=== PATIENT | female | born 1985 | race African-American/Black ===

== ENCOUNTER 2016-12-19 11:57 | Emergency (ER) | payer SELFPAY ==
--- OUTSIDE RECORDS SUMMARY | 2016-12-19 11:59 | XMS | Clinical Summary ---
:1985 Author Organization [facility] Address [address] [place] [address] Phone Care Team Providers Name Role Phone , Primary Care Provider Unavailable Allergies Not on File Current Medications Not on file Active Problems Not on file Social History Tobacco Use Types Packs/Day Years Used Date Never Assessed Sex Assigned at Date Recorded Not on file Last Filed Vital Signs Not on file Plan of Treatment Not on file Results Not on filefrom Last 3 Months
[2016-12-19 14:03] LABS: #Basophils 0.1 thou/uL (0.0-0.2); #Eosinphils 0.2 thou/uL (0.0-0.7); #Lymphocytes 3.1 thou/uL (1.20-3.40); #Monocytes 0.7 thou/uL (0.11-0.59); #Neutrophils 4.2 thou/uL (1.40-6.50); %Basophils 0.6 % (0.0-1.0); %Lymphocytes 37.6 % (21.0-51.0); %Monocytes 7.9 % (0.0-10.0); Hematocrit 39.3 % (36.0-47.0); Mean Platelet Volume 6.2 fL (7.4-10.4); Red Blood Cell (RBC) Count 4.33 mill/uL (4.20-5.40); White Blood Cell (WBC) Count 8.2 thou/uL (4.8-10.8)
[2016-12-19 14:27] LABS: ALT (SGPT) 17 U/L (8-55); AST (SGOT) 17 U/L (5-34); Alkaline Phosphatase 130 U/L (40-150); Anion Gap 13 mmol/L (10-20); BUN (Urea Nitrogen) 10 mg/dL (7.0-18.7); Bilirubin, Total Less than 0.2 mg/dL (0.2-1.2); Calc. Creatinine Clearance 0 mL/min (70-130); Calcium 8.6 mg/dL (7.8-10.44); Carbon Dioxide 24 mmol/L (22-29); Chloride 105 mmol/L (98-107); Estimated GFR-MDRD Greater than 90; Globulin 4.3 g/dL (2.4-3.5)
--- NOTE | 2016-12-19 15:07 | CT ---
EXAM: NONCONTRAST HEAD CT: HISTORY: Headache. Nausea and dizziness. Migraines. TECHNIQUE: A noncontrast head CT is performed from the skull base to the skull vertex. FINDINGS: No parenchymal hemorrhage. No extraaxial hematoma. No midline shift. Basilar cisterns are patent. Brain volume, age appropriate. Cortical izaguirre-white matter differentiation is preserved. Ventricles and sulci are patent and symmetric. Calvarium is intact. Old right lamina papyracea fra cture is noted. Adequate aeration of the paranasal sinuses. Right mastoid air cells are adequately aerated. Stable opacification and postsurgical imaging of the left mastoid air cell. IMPRESSION: No acute intracranial process. POS: [facility]
[2016-12-19] MEDS ORDERED: Ibuprofen 800 MG TAB ONE (15:10)
[2016-12-19] MEDS ORDERED: HYDROcodone/Acetaminophen 10/325 mg Tablet ONE (15:10)
[2016-12-19] MEDS ORDERED: Metoclopramide HCl 10 MG TAB PO SCH (15:45)
== END 2016-12-19 15:49 | disposition home or self-care (01) ==
LOC: ERS 11:57
DX: G43.909 Migraine, unspecified, not intractable, without status migrainosus (principal); L40.9 Psoriasis, unspecified
CPT/HCPCS: 36415; 70450; 80053; 84703; 85025

== ENCOUNTER 2017-05-12 08:06 | Emergency (ER) | payer MEDICAID, OTHER ==
[2017-05-12 08:34] LABS: #Eosinphils 0.2 thou/uL (0.0-0.7); #Lymphocytes 2.6 thou/uL (1.20-3.40); #Monocytes 0.6 thou/uL (0.11-0.59); %Basophils 0.2 % (0.0-1.0); %Eosinophils 1.8 % (0.0-10.0); %Monocytes 5.5 % (0.0-10.0); %Neutrophils 67.6 % (42.0-75.0); Hemoglobin 11.7 g/dL (12.0-16.0); Mean Corpuscular HGB CONC 32.5 g/dL (32.0-36.0); Mean Corpuscular Hemoglobin 29.1 pg (27.0-31.0); Mean Corpuscular Volume 89.7 fl (81.0-99.0); Platelet Count 405 thou/uL (130-400); RBC Distribution Width 12.7 % (11.5-14.5); Red Blood Cell (RBC) Count 4.02 mill/uL (4.20-5.40); White Blood Cell (WBC) Count 10.3 thou/uL (4.8-10.8)
[2017-05-12 09:37] LABS: Bilirubin Negative (Negative); Blood, Urine Negative (Negative); Clarity CLEAR (Clear); Glucose, Urine (Dipstick) Negative (Negative); Leukocyte Negative (Negative); Nitrite Negative (Negative); Protein, Urine (Dipstick) Negative (Neg-Trace); Specific Gravity, Urine 1.024 (1.002-1.036)
--- NOTE | 2017-05-12 10:28 | ULT ---
PELVIC ULTRASOUND: HISTORY: Positive home test with abdominal and pelvic pain. TECHNIQUE: Multiplanar, izaguirre scale, and color Doppler images were obtained in a transabdominal and transvaginal pelvic ultrasound. Spectral analysis of the Doppler waveforms of the ovaries was performed. FINDINGS: Endometrial stripe is thickened measuring 1.9 cm. There is a questionable small hypoechoic structure in area of thickened endometrium which could represent a very early gestational sac. This has a thea n sac diameter of 0.65 cm which estimated gestational age of 5 weeks 3 days. No pole or yolk s ac is seen at this time within the potential gestational sac. There is a possible fibroid along the left aspect of the uterus measuring 2.4 cm in size. A small amount of free fluid is seen in the pelv is. Both ovaries are normal in size and appearance and demonstrate normal internal flow. IMPRESSION: 1. Possible early intrauterine gestational sac with estimated of 5 weeks 3 days. 2. Uterine fibroid. POS: [facility]
== END 2017-05-12 10:38 | disposition home or self-care (01) ==
LOC: ERS 08:06
DX: O99.89 Other specified diseases and conditions complicating pregnancy, childbirth and the puerperium (principal); R10.31 Right lower quadrant pain; Z3A.01 Less than 8 weeks gestation of pregnancy
CPT/HCPCS: 36415; 76856; 81003; 84702; 85025; 86900; 86901

== ENCOUNTER 2017-06-12 22:53 | Emergency (ER) | payer MEDICAID, OTHER ==
[2017-06-13] MEDS ORDERED: Acetaminophen 500 MG TAB ONE (00:50)
[2017-06-13] MEDS ORDERED: Metoclopramide HCl 10 MG TAB PO SCH (01:00)
== END 2017-06-13 02:10 | disposition home or self-care (01) ==
LOC: ERS 22:53
DX: O99.89 Other specified diseases and conditions complicating pregnancy, childbirth and the puerperium (principal); R10.32 Left lower quadrant pain; R51 Headache; Z3A.09 9 weeks gestation of pregnancy

== ENCOUNTER 2017-07-05 11:14 | Emergency (ER) | payer OTHER ==
[2017-07-05] MEDS ORDERED: Ondansetron HCl/PF 4 MG/2 ML Vial ONE (11:43)
[2017-07-05 12:50] LABS: Bilirubin Negative (Negative); Blood, Urine Trace (Negative); Clarity CLEAR (Clear); Glucose, Urine (Dipstick) Negative (Negative); Leukocyte Negative (Negative); Nitrite Negative (Negative); Protein, Urine (Dipstick) Negative (Neg-Trace); Specific Gravity, Urine 1.023 (1.002-1.036); Urobilinogen 0.2 mg/dL (0.2-1.0); pH, Urine 6.5 (5.0-9.0)
[2017-07-05 12:51] LABS: Bacteria/HPF Rare-Few HPF (None Seen); Hyaline Casts/LPF 0-3 HYALINE CAST LPF (0-3 Hyaline); Squamous Epithelial 0-3 HPF (0-3); WBC/HPF 0-3 HPF (0-3)
[2017-07-05] MEDS ORDERED: Meclizine HCl 25 MG TAB ONE (13:04)
[2017-07-05] MEDS ORDERED: Acetaminophen 500 MG TAB ONE (13:09)
[2017-07-05 14:06] LABS: #Eosinphils 0.2 thou/uL (0.0-0.7); #Lymphocytes 2.9 thou/uL (1.20-3.40); #Monocytes 0.7 thou/uL (0.11-0.59); #Neutrophils 7.3 thou/uL (1.40-6.50); %Basophils 0.3 % (0.0-1.0); %Eosinophils 1.6 % (0.0-10.0); %Lymphocytes 26.1 % (21.0-51.0); %Monocytes 6.6 % (0.0-10.0); %Neutrophils 65.4 % (42.0-75.0); Hemoglobin 12.4 g/dL (12.0-16.0); Mean Corpuscular HGB CONC 33.3 g/dL (32.0-36.0); Mean Corpuscular Hemoglobin 29.3 pg (27.0-31.0); Mean Platelet Volume 5.6 fL (7.4-10.4); Platelet Count 419 thou/uL (130-400); RBC Distribution Width 12.7 % (11.5-14.5); Red Blood Cell (RBC) Count 4.23 mill/uL (4.20-5.40); White Blood Cell (WBC) Count 11.1 thou/uL (4.8-10.8)
[2017-07-05 14:27] LABS: ALT (SGPT) 14 U/L (8-55); AST (SGOT) 12 U/L (5-34); Albumin 3.6 g/dL (3.5-5.0); Alkaline Phosphatase 63 U/L (40-150); Anion Gap 13 mmol/L (10-20); BUN (Urea Nitrogen) 6 mg/dL (7.0-18.7); Bilirubin, Total Less than 0.2 mg/dL (0.2-1.2); Calc. Creatinine Clearance 0 mL/min (70-130); Calcium 8.9 mg/dL (7.8-10.44); Carbon Dioxide 20 mmol/L (22-29); Chloride 105 mmol/L (98-107); Estimated GFR-MDRD Greater than 90; Glucose 94 mg/dL (70-105); Protein, Total 7.6 g/dL (6.0-8.3); Sodium 134 mmol/L (136-145)
[2017-07-05 14:33] LABS: CKMB 0.6 ng/mL (0-6.6); Troponin I Less than 0.010 ng/mL (< 0.028)
== END 2017-07-05 14:45 | disposition home or self-care (01) ==
LOC: ERS 11:14
DX: O99.341 Other mental disorders complicating pregnancy, first trimester; F43.9 Reaction to severe stress, unspecified
CPT/HCPCS: 36415; 80053; 81003; 81015; 82553; 84484; 85025; 93005; 96361; 96374; J2405

== ENCOUNTER 2017-12-29 12:12 | Day surgery (SDC) | payer OTHER ==
--- NOTE | 2017-12-29 13:22 | PDOC.LDHP ---
Labor and Delivery H&P HPI: Patient of [facility] EGA: 38 weeks 4 days CC: Pelvic (vaginal pressure)...few contractions HPI: 32 yo at 38 weeks 4 days here for possible early labor. Good FM, no VB, no LOF. Good FM. No headache or other issues Review of Systems: Complete systems ROS completed and as per HPI. Additional sxs is persistent "heartburn", for which she takes medication (name unclear). She is also on Flexerill by her MD due to persistent back spasm Current gestational age (weeks): 38 (4 days) Dating criteria: last menstrual period Grav: 3 Para: 2 Current complications: other (persistent GERD sxs) Abnormal US findings: No Current medications: pre- vitamins, other (Flereill and "heartburn medication") Previous surgical history: other (Tubes in ears as child) Allergies/Adverse Reactions: Allergies Allergy/AdvReac Type Severity Reaction Status Date / Time No Known Allergies Allergy Unverified 12/19/16 15:37 Social history: none - Physical Exam Vital signs reviewed and normal: yes (102/58 93 100% O2) General: NAD Heart: RRR Lungs: CTAB Abdomen: gravid Extremeties: no edema FHT: category 1 [place] contractions every: 2 contractions in 20 minutes - Vaginal Exam cm dilated: 1 Effacement: 25% Station: -2 - Assessment Latent labor at early term - Plan Plan: observation in L&D (No evidence PIH or VB nor ROM. Latent phase reviewed. No active contection pattern. OK for outpatient care.)
--- NOTE | 2017-12-29 13:40 | PDOC.EVN ---
Event Note - Event Note Event Note: Patient seen at bedside, information given. Has appoitment tomorrow with her MD
[2017-12-29 14:16] VITALS: BMI 47.4
== END 2017-12-29 13:50 | disposition home health service (06) ==
LOC: L&D/OP 12:12
PROVIDERS: ATTEND Obstetrics & Gynecology
DX: O47.1 False labor at or after 37 completed weeks of gestation (principal); Z3A.38 38 weeks gestation of pregnancy
CPT/HCPCS: 99282

== ENCOUNTER 2018-07-26 08:52 | Emergency (ER) | payer OTHER ==
[2018-07-26 10:08] LABS: #Eosinphils 0.4 thou/uL (0.0-0.7); #Lymphocytes 2.6 thou/uL (1.20-3.40); #Monocytes 0.5 thou/uL (0.11-0.59); #Neutrophils 5.2 thou/uL (1.40-6.50); %Basophils 0.4 % (0.0-1.0); %Eosinophils 4.7 % (0.0-10.0); %Lymphocytes 29.9 % (21.0-51.0); %Monocytes 5.2 % (0.0-10.0); %Neutrophils 59.9 % (42.0-75.0); Hemoglobin 11.6 g/dL (12.0-16.0); Mean Corpuscular HGB CONC 31.8 g/dL (32.0-36.0); Mean Corpuscular Hemoglobin 27.5 pg (27.0-31.0); Mean Corpuscular Volume 86.3 fL (78.0-98.0); Mean Platelet Volume 6.8 fL (7.4-10.4); Platelet Count 370 thou/uL (130-400); RBC Distribution Width 12.6 % (11.5-14.5); Red Blood Cell (RBC) Count 4.22 mill/uL (4.20-5.40); White Blood Cell (WBC) Count 8.7 thou/uL (4.8-10.8)
[2018-07-26 10:14] LABS: BHCG - Serum Negative (NEGATIVE); Pregs Control Background? CLEAR/WHITE (CLR/WHITE); Pregs Control Bar Appear? YES (CONTROL BAR)
[2018-07-26] MEDS ORDERED: Acetaminophen 500 MG TAB ONE (10:14)
--- NOTE | 2018-07-26 10:18 | RAD ---
PORTABLE CHEST: Date: 07/26/18 HISTORY: Chest pain. COMPARISON: 06/15/07 study. FINDINGS: Heart size appears slightly enlarged. Mediastinal structures are unremarkable. Lungs are clear of inf iltrates. IMPRESSION: Cardiomegaly. No signs of overt failure. POS: [facility]
[2018-07-26 10:27] LABS: ALT (SGPT) 11 U/L (8-55); AST (SGOT) 10 U/L (5-34); Albumin 3.7 g/dL (3.5-5.0); Alkaline Phosphatase 113 U/L (40-150); Anion Gap 12 mmol/L (10-20); BUN (Urea Nitrogen) 9 mg/dL (7.0-18.7); Bilirubin, Total 0.2 mg/dL (0.2-1.2); Calc. Creatinine Clearance 0 mL/min (70-130); Calcium 8.8 mg/dL (7.8-10.44); Carbon Dioxide 21 mmol/L (22-29); Chloride 107 mmol/L (98-107); Estimated GFR-MDRD Greater than 90; Globulin 3.7 g/dL (2.4-3.5); Glucose 135 mg/dL (70-105); Potassium 3.9 mmol/L (3.5-5.1); Protein, Total 7.4 g/dL (6.0-8.3); Sodium 136 mmol/L (136-145)
== END 2018-07-26 11:27 | disposition home or self-care (01) ==
LOC: ERS 08:52
DX: R07.89 Other chest pain (principal); R51 Headache
CPT/HCPCS: 36415; 71045; 80053; 84484; 84703; 85025; 93005